=== PATIENT | male | born 1995 | race Two or more races ===

== ENCOUNTER 2020-06-16 10:03 | Emergency (ER) | payer MEDICAID ==
[~2020-06-16] VITALS: Ht 162.6 cm; Wt 81.6 kg
[2020-06-16 10:21] VITALS: BP 118/78
[2020-06-16] MEDS ORDERED: IBUPROFEN 800 MG TAB PO ONE (11:45)
== END 2020-06-16 11:57 | disposition home or self-care (01) ==
LOC: ER 10:03
DX: S63.501A Unspecified sprain of right wrist, initial encounter (principal); X58.XXXA Exposure to other specified factors, initial encounter; Y93.89 Activity, other specified; Y92.89 Other specified places as the place of occurrence of the external cause; Y99.8 Other external cause status
CPT/HCPCS: 73110